=== PATIENT | female | born 1935 | race Caucasian/White ===

== ENCOUNTER 2020-02-06 10:18 | Inpatient (IN) ==
[2020-02-06] MEDS ORDERED: SODIUM CHLORIDE 0.9% 500 ML IV STA (10:34)
[2020-02-06] MEDS ORDERED: fentaNYL 100 MCG/2 ML VIAL IV STA ×2 (11:50→12:22)
[2020-02-06 12:40] LABS: INR 1.1; PT Patient Result 11.7 SECS (9.8-11.9)
[2020-02-06 12:44] LABS: Basophils # 0.2 10*3/uL (0.0-0.2); Basophils % 1.9 % (0.0-0.8); Eosinophils # 0.3 10*3/uL (0.0-0.87); Eosinophils % 2.7 % (0.00-10.9); Hematocrit 40.8 VOL% (35.7-47.0); Hemoglobin 12.1 GM/DL (12.0-16.0); Immature Granulocytes % 0.8 %; Immature Granulocytes Absolute 0.07 #; Lymphocytes # 0.8 10*3/uL (1.4-4.0); Mean Corpuscular HGB Conc 29.7 GM/DL (32-36); Mean Corpuscular Volume 94.4 FL (87-102); Mean Platelet Volume 10.2 FL (9.6-12.0); Monocytes % 3.1 % (1.7-12.7); Neutrophils % 82.5 % (38.7-73.9); Platelet Count 376 T/CUMM (130-400); Red Blood Count 4.32 MC/CUMM (3.8-5.5); Red Cell Distribution Width 16.3 % (9.3-17.3); White Blood Count 9.3 T/CUMM (4-12)
[2020-02-06 13:04] LABS: Calcium 8.3 MG/DL (8.5-10.1); Osmolality,Calculated 288.1 MOS/KG (273-304)
[2020-02-06] MEDS ORDERED: HYDROmorphone 2 MG/1 ML VIAL IV STA (13:12)
[2020-02-06] MEDS ORDERED: ONDANSETRON 4 MG/2 ML VIAL IV PRN (13:50)
[2020-02-06] MEDS ORDERED: GLUCAGON 1 MG VIAL IM PRN (13:50)
[2020-02-06] MEDS ORDERED: MORPHINE 4 MG/1 ML VIAL IV PRN (13:50)
[2020-02-06] MEDS ORDERED: DEXTROSE 10% 250 ML BAG IV PRN (13:50)
[2020-02-06] MEDS ORDERED: LEVALBUTEROL 1.25 MG/3 ML NEB RESP TX PRN (15:03)
[2020-02-06] MEDS ORDERED: LORazepam 1 MG TABLET PO PRN (15:03)
[2020-02-06] MEDS ORDERED: IPRATROPIUM 500 MCG/2.5 ML NEB RESP TX PRN (15:03)
[2020-02-06] MEDS ORDERED: BUDESONIDE 0.5 MG/2 ML NEB RESP TX PRN (15:03)
[2020-02-06] MEDS: SODIUM CHLORIDE 0.9% 1,000 ML IV SCH (17:00)
[2020-02-06] MEDS: METOPROLOL TARTRATE 25 MG TABLET PO SCH (21:25)
[2020-02-06] MEDS: PANTOPRAZOLE 40 MG TABLET PO SCH (21:25)
[2020-02-06] MEDS: FERROUS SULFATE 325 MG TABLET PO SCH (21:25)
[2020-02-07] MEDS: SODIUM CHLORIDE 0.9% 1,000 ML IV SCH ×3 (04:32→17:57)
[2020-02-07] MEDS: ACETAMINOPHEN 325 MG TABLET PO PRN (04:38)
[2020-02-07] MEDS: MONTELUKAST 10 MG TABLET PO SCH (09:00)
[2020-02-07] MEDS: PANTOPRAZOLE 40 MG TABLET PO SCH ×2 (09:00→21:46)
[2020-02-07] MEDS: FERROUS SULFATE 325 MG TABLET PO SCH ×2 (09:00→21:46)
[2020-02-07] MEDS: ESCITALOPRAM 10 MG TABLET PO SCH (09:00)
[2020-02-07 09:30] LABS: Basophils # 0.1 10*3/uL (0.0-0.2); Basophils % 1.7 % (0.0-0.8); Eosinophils # 0.2 10*3/uL (0.0-0.87); Eosinophils % 2.5 % (0.00-10.9); Hematocrit 30.9 VOL% (35.7-47.0); Immature Granulocytes % 0.7 %; Immature Granulocytes Absolute 0.04 #; Lymphocytes # 0.9 10*3/uL (1.4-4.0); Lymphocytes % 15.5 % (21.3-54.2); Mean Corpuscular HGB Conc 29.1 GM/DL (32-36); Mean Corpuscular Volume 95.1 FL (87-102); Mean Platelet Volume 10.1 FL (9.6-12.0); Neutrophils % 72.6 % (38.7-73.9); Platelet Count 292 T/CUMM (130-400); Red Blood Count 3.25 MC/CUMM (3.8-5.5); Red Cell Distribution Width 16.3 % (9.3-17.3)
[2020-02-07] MEDS: METOPROLOL TARTRATE 25 MG TABLET PO SCH ×2 (09:51→21:50)
[2020-02-07 10:01] LABS: Calcium 7.9 MG/DL (8.5-10.1); Osmolality,Calculated 290.7 MOS/KG (273-304)
[2020-02-07] MEDS ORDERED: ceFAZolin 1,000 MG VIAL ONE (10:43)
[2020-02-07] MEDS ORDERED: PHENYLEPHRINE DRIP 20 MG/250 ML PREMIX IV ONE (12:42)
[2020-02-07] MEDS ORDERED: SEVOFLURANE 1 UNIT/15 MINUTE INH ONE (12:42)
[2020-02-07] MEDS ORDERED: LIDOCAINE 2% 5 ML VIAL ONE (12:42)
[2020-02-07] MEDS ORDERED: fentaNYL 100 MCG/2 ML VIAL ONE (12:42)
[2020-02-07] MEDS ORDERED: propofoL 200 MG/20 ML VIAL IV ONE (12:42)
[2020-02-07] MEDS ORDERED: ePHEDrine 50 MG/ML VIAL ONE (12:43)
[2020-02-07] MEDS ORDERED: ETOMIDATE 40 MG/20 ML VIAL IV ONE (12:43)
[2020-02-07] MEDS ORDERED: ONDANSETRON 4 MG/2 ML VIAL ONE ×2 (12:43→12:55)
[2020-02-07] MEDS ORDERED: GLYCOPYRROLATE 0.4 MG/2 ML VIAL ONE (12:43)
[2020-02-07] MEDS ORDERED: PHENYLEPHRINE 1 MG/10 ML SYRINGE IV ONE (12:43)
[2020-02-07] MEDS ORDERED: DEXAMETHASONE 4 MG/1 ML VIAL ONE (12:43)
[2020-02-07] MEDS ORDERED: ACETAMINOPHEN 1,000 MG/100 ML VIAL IV ONE (12:43)
[2020-02-07] MEDS ORDERED: LACTATED RINGERS 1,000 ML IV ONE (12:44)
[2020-02-07] MEDS ORDERED: SUCCINYLCHOLINE 200 MG/10 ML VIAL ONE (12:44)
[2020-02-07] MEDS ORDERED: NEOSTIGMINE 10 MG/10 ML VIAL ONE (12:44)
[2020-02-07] MEDS ORDERED: ROCURONIUM 100 MG/10 ML VIAL IV ONE (12:44)
[2020-02-07] MEDS ORDERED: ONDANSETRON 4 MG/2 ML VIAL IV PRN (13:00)
[2020-02-07] MEDS ORDERED: MORPHINE 10 MG/1 ML VIAL IV PRN (13:19)
[2020-02-07] MEDS ORDERED: MORPHINE 10 MG/1 ML VIAL ONE (13:20)
[2020-02-07] MEDS: ceFAZolin 2,000 MG in PREMIX 1 EACH IV SCH ×2 (14:26→21:55)
[2020-02-08] MEDS: SODIUM CHLORIDE 0.9% 1,000 ML IV SCH ×2 (05:34→07:18)
[2020-02-08 08:19] LABS: Basophils # 0.1 10*3/uL (0.0-0.2); Basophils % 1.2 % (0.0-0.8); Eosinophils # 0.1 10*3/uL (0.0-0.87); Eosinophils % 0.7 % (0.00-10.9); Hematocrit 24.1 VOL% (35.7-47.0); Immature Granulocytes % 0.5 %; Immature Granulocytes Absolute 0.04 #; Lymphocytes # 1.4 10*3/uL (1.4-4.0); Lymphocytes % 18.9 % (21.3-54.2); Mean Corpuscular HGB Conc 29.5 GM/DL (32-36); Mean Corpuscular Volume 94.5 FL (87-102); Mean Platelet Volume 10.3 FL (9.6-12.0); Neutrophils % 70.7 % (38.7-73.9); Platelet Count 281 T/CUMM (130-400); Red Cell Distribution Width 16.7 % (9.3-17.3); White Blood Count 7.4 T/CUMM (4-12)
[2020-02-08 08:24] LABS: Hemoglobin 7.1 GM/DL (12.0-16.0); Red Blood Count 2.55 MC/CUMM (3.8-5.5)
[2020-02-08 08:30] LABS: Calcium 7.9 MG/DL (8.5-10.1)
[2020-02-08] MEDS ORDERED: POTASSIUM CHLORIDE RIDER 10 MEQ in PREMIX 1 EACH IV PRN (09:02)
[2020-02-08] MEDS ORDERED: MAGNESIUM SULF RIDER 2 GM in PREMIX 1 EACH IV PRN (09:03)
[2020-02-08] MEDS ORDERED: MAGNESIUM SULF RIDER 4 GM in PREMIX 1 EACH IV PRN (09:03)
[2020-02-08] MEDS: MONTELUKAST 10 MG TABLET PO SCH (10:01)
[2020-02-08] MEDS: FERROUS SULFATE 325 MG TABLET PO SCH ×2 (10:01→23:01)
[2020-02-08] MEDS: ENOXAPARIN 40 MG/0.4 ML SYRINGE SUBCUT SCH (10:01)
[2020-02-08] MEDS: METOPROLOL TARTRATE 25 MG TABLET PO SCH ×2 (10:01→23:01)
[2020-02-08] MEDS: ESCITALOPRAM 10 MG TABLET PO SCH (10:01)
[2020-02-08] MEDS: PANTOPRAZOLE 40 MG TABLET PO SCH ×2 (10:01→23:01)
[2020-02-08] MEDS: POTASSIUM CHLORIDE 20 MEQ TABLET PO PRN ×4 (10:12→15:47)
[2020-02-08] MEDS ORDERED: SODIUM CHLORIDE 0.9% 1,000 ML IV PRN (12:49)
[2020-02-08 13:15] LABS: Hematocrit 23.7 VOL% (35.7-47.0); Hemoglobin 7.3 GM/DL (12.0-16.0)
[2020-02-08 13:18] LABS: % Iron Saturation 12.8 % (18-50)
[2020-02-08] MEDS: ACETAMINOPHEN 325 MG TABLET PO PRN (23:49)
[2020-02-09] MEDS: SODIUM CHLORIDE 0.9% 1,000 ML IV SCH ×2 (09:10→17:22)
[2020-02-09] MEDS: ESCITALOPRAM 10 MG TABLET PO SCH (09:11)
[2020-02-09] MEDS: METOPROLOL TARTRATE 25 MG TABLET PO SCH ×2 (09:11→21:40)
[2020-02-09] MEDS: FERROUS SULFATE 325 MG TABLET PO SCH ×2 (09:11→21:40)
[2020-02-09] MEDS: PANTOPRAZOLE 40 MG TABLET PO SCH ×2 (09:11→21:40)
[2020-02-09] MEDS: ENOXAPARIN 40 MG/0.4 ML SYRINGE SUBCUT SCH (09:11)
[2020-02-09] MEDS: MONTELUKAST 10 MG TABLET PO SCH (09:11)
[2020-02-09 09:50] LABS: Basophils # 0.2 10*3/uL (0.0-0.2); Basophils % 2.9 % (0.0-0.8); Eosinophils # 0.2 10*3/uL (0.0-0.87); Eosinophils % 4.4 % (0.00-10.9); Hematocrit 34.6 VOL% (35.7-47.0); Immature Granulocytes % 0.8 %; Immature Granulocytes Absolute 0.04 #; Lymphocytes # 1.1 10*3/uL (1.4-4.0); Lymphocytes % 21.1 % (21.3-54.2); Mean Corpuscular HGB Conc 30.9 GM/DL (32-36); Monocytes % 8.6 % (1.7-12.7); Neutrophils % 62.2 % (38.7-73.9); Platelet Count 282 T/CUMM (130-400); Red Blood Count 3.76 MC/CUMM (3.8-5.5); Red Cell Distribution Width 16.3 % (9.3-17.3); White Blood Count 5.3 T/CUMM (4-12)
[2020-02-09 09:59] LABS: Hemoglobin 10.7 GM/DL (12.0-16.0)
[2020-02-09 10:09] LABS: Calcium 8.3 MG/DL (8.5-10.1); Osmolality,Calculated 282.1 MOS/KG (273-304)
[2020-02-09 10:23] LABS: Band Neutrophils 2 % (0-10); Eosinophils 8 % (0-10); Lymphocytes 16 % (20-55); Nucleated Red Blood Cells 1 (0-5); Segmented Neutrophils 63 % (50-85); Total Cells Counted 100
[2020-02-09 10:24] LABS: Hypochromasia 1+; Microcytosis 1+; Platelet Estimate Normal
[2020-02-10] MEDS: SODIUM CHLORIDE 0.9% 1,000 ML IV SCH ×2 (03:44→21:58)
[2020-02-10 05:55] LABS: Basophils # 0.1 10*3/uL (0.0-0.2); Basophils % 2.8 % (0.0-0.8); Eosinophils # 0.3 10*3/uL (0.0-0.87); Eosinophils % 5.5 % (0.00-10.9); Hematocrit 35.3 VOL% (35.7-47.0); Hemoglobin 10.9 GM/DL (12.0-16.0); Immature Granulocytes % 0.6 %; Immature Granulocytes Absolute 0.03 #; Lymphocytes # 0.9 10*3/uL (1.4-4.0); Lymphocytes % 18.5 % (21.3-54.2); Mean Corpuscular HGB Conc 30.9 GM/DL (32-36); Mean Corpuscular Volume 91.5 FL (87-102); Mean Platelet Volume 10.1 FL (9.6-12.0); Monocytes % 8.3 % (1.7-12.7); Neutrophils % 64.3 % (38.7-73.9); Platelet Count 305 T/CUMM (130-400); Red Blood Count 3.86 MC/CUMM (3.8-5.5); Red Cell Distribution Width 16.1 % (9.3-17.3); White Blood Count 5.1 T/CUMM (4-12)
[2020-02-10 06:13] LABS: Calcium 8.2 MG/DL (8.5-10.1); Osmolality,Calculated 277.4 MOS/KG (273-304)
[2020-02-10 06:27] LABS: Band Neutrophils 1 % (0-10); Eosinophils 4 % (0-10); Lymphocytes 22 % (20-55); Segmented Neutrophils 68 % (50-85); Total Cells Counted 100
[2020-02-10 06:28] LABS: Anisocytosis 1+; Platelet Estimate Normal
[2020-02-10] MEDS: MONTELUKAST 10 MG TABLET PO SCH (09:14)
[2020-02-10] MEDS: ENOXAPARIN 40 MG/0.4 ML SYRINGE SUBCUT SCH (09:14)
[2020-02-10] MEDS: METOPROLOL TARTRATE 25 MG TABLET PO SCH ×2 (09:14→20:59)
[2020-02-10] MEDS: FERROUS SULFATE 325 MG TABLET PO SCH ×2 (09:14→20:59)
[2020-02-10] MEDS: ESCITALOPRAM 10 MG TABLET PO SCH (09:14)
[2020-02-10] MEDS: PANTOPRAZOLE 40 MG TABLET PO SCH ×2 (09:14→20:59)
[2020-02-11] MEDS: SODIUM CHLORIDE 0.9% 1,000 ML IV SCH (07:47)
[2020-02-11 08:26] LABS: Hematocrit 36.6 VOL% (35.7-47.0); Hemoglobin 11.2 GM/DL (12.0-16.0)
[2020-02-11] MEDS: MONTELUKAST 10 MG TABLET PO SCH (10:15)
[2020-02-11] MEDS: ESCITALOPRAM 10 MG TABLET PO SCH (10:15)
[2020-02-11] MEDS: FERROUS SULFATE 325 MG TABLET PO SCH (10:15)
[2020-02-11] MEDS: PANTOPRAZOLE 40 MG TABLET PO SCH (10:15)
[2020-02-11] MEDS: METOPROLOL TARTRATE 25 MG TABLET PO SCH (10:15)
[2020-02-11] MEDS: ENOXAPARIN 40 MG/0.4 ML SYRINGE SUBCUT SCH (10:15)
[2020-02-11 11:37] VITALS: BP 107/74
== END 2020-02-11 12:15 | DRG 480 ==
LOC: EDBD → EDUNIT# → N.ED 10:18 → N.EDINP 13:50 → SUATTDRO 13:50 → N.3E 16:13
PROVIDERS: ADMIT Internal Medicine Geriatric Medicine; ATTEND Hospitalist